=== PATIENT | male | born 1965 | race African-American/Black ===

== ENCOUNTER 2023-06-22 06:35 | Emergency (ER) | payer MEDICAID ==
[~2023-06-22] VITALS: Ht 175.3 cm; Wt 75.0 kg
[~2023-06-22 06:35] MED LIST: BUDE6HFA INH; P20 PO
[2023-06-22 06:37] VITALS: O2SAT 99
[2023-06-22 06:52] VITALS: PULSE 102; RESP 20; O2SAT 99
[2023-06-22] MEDS: METHYLPREDNISOLONE SOD SUCC 125MG/2ML (ACT-O-VIAL) IV STA (06:54)
[2023-06-22] MEDS: MAGNESIUM 2 G PREMIX 50 ML IV STA (06:54)
[2023-06-22] MEDS: IPRATROPIUM BROMIDE (0.02%) 0.5MG/2.5ML NEB HHN STA (07:02)
[2023-06-22] MEDS: ALBUTEROL (0.083%) 2.5MG/3ML NEB HHN STA (07:03)
[2023-06-22 07:43] VITALS: BP 111/83; PULSE 17; RESP 15; TEMP 98.5
[2023-06-22 08:06] LABS: BASOPHILS % 0.6 % (0.0-2.0); EOSINOPHILS % 1.8 % (0.0-5.0); HEMATOCRIT. 38.8 % (42.0-52.0); HEMOGLOBIN. 13.1 g/dL (14.0-18.0); LYMPHOCYTES % 24.6 % (20.0-50.0); MEAN CORPUSCULAR HEMOGLOBIN 29.9 pg (28.0-32.0); MEAN CORPUSCULAR HGB CONC 33.8 g/dL (31.0-37.0); MEAN CORPUSCULAR VOLUME 88.6 fL (80.0-94.0); MEAN PLATELET VOLUME 9.3 fl (7.4-10.4); MONOCYTES % 12.4 % (2.0-8.0); NEUTROPHILS % 60.6 % (40.0-76.0); PLATELET 315 x1000/uL (130-400); RED BLOOD CELL COUNT 4.38 mill/uL (4.7-6.1); RED CELL DISTRIBUTION WIDTH 13.5 % (11.6-14.6); WHITE BLOOD COUNT 7.3 x1000/uL (4.5-11.0)
[2023-06-22 08:49] LABS: ALANINE AMINOTRANSFERASE 33 IU/L (10-49); ALBUMIN 4.3 g/dL (3.2-4.8); ASPARTATE AMINOTRANSFERASE 25 IU/L (<34); BILIRUBIN TOTAL 0.3 mg/dL (0.1-1.0); CALCIUM 8.7 mg/dL (8.7-10.4); CARBON DIOXIDE 27 mEq/L (21-32); CHLORIDE 103 mEq/L (98-107); GLUCOSE 143 mg/dL (70-105); POTASSIUM 4.1 mEq/L (3.5-5.1); PROTEIN TOTAL 6.6 g/dL (6.0-8.3); SODIUM 137 mEq/L (136-145); TROPONIN I HIGH SENSITIVITY 4 ng/L (3.0-53); UREA NITROGEN BLOOD 23 mg/dL (9-23)
[2023-06-22] MEDS ORDERED: P50 PO (09:24)
[2023-06-22] MEDS ORDERED: ALBU6.7H15 INH (09:24)
[2023-06-22] MEDS ORDERED: ALBU05 NEB (09:24)
== END 2023-06-22 11:08 | disposition home or self-care (01) ==
LOC: ER 07:13 → CANBEDREQ 06-24 00:25
DX: R09.02 Hypoxemia (principal); J45.909 Unspecified asthma, uncomplicated; F12.10 Cannabis abuse, uncomplicated; J44.9 Chronic obstructive pulmonary disease, unspecified; Z79.899 Other long term (current) drug therapy
CPT/HCPCS: 80053; 83880; 85025; 84484; 36415; 71045; 93005; 94644; 96365; 96375; 99285; J3475; J2930; Z7610 ×2